=== PATIENT | male | born 1995 | race Caucasian/White ===

== ENCOUNTER 2020-04-26 20:37 | Emergency (ER) | payer MEDICAID ==
[~2020-04-26] VITALS: Ht 175.3 cm; Wt 78.9 kg
[2020-04-26 21:02] VITALS: BP 124/62; Ht 175.3 cm; Wt 78.9 kg
== END 2020-04-26 21:36 | disposition home or self-care (01) ==
LOC: ED 20:37
DX: S80.861A Insect bite (nonvenomous), right lower leg, initial encounter (principal); L03.90 Cellulitis, unspecified; W57.XXXA Bitten or stung by nonvenomous insect and other nonvenomous arthropods, initial encounter; Y93.89 Activity, other specified; Y92.89 Other specified places as the place of occurrence of the external cause; Y99.8 Other external cause status

== ENCOUNTER 2020-11-14 15:38 | Emergency (ER) | payer MEDICAID ==
[~2020-11-14] VITALS: Ht 175.3 cm; Wt 81.2 kg
[2020-11-14 15:52] VITALS: Ht 175.3 cm; Wt 81.2 kg
[2020-11-14 19:52] VITALS: BP 140/87
== END 2020-11-14 17:00 | disposition home or self-care (01) ==
LOC: ED 15:38
DX: K13.0 Diseases of lips (principal)